=== PATIENT | female | born 1965 ===

== ENCOUNTER → 2017-07-22 | Outpatient (CLI) | payer OTHER ==
[~2017-07-22] MED LIST: DOCU100 PO; HEMOTOB PR; HYDACE25S PR; HYDACE5 PO; POLY17UD PO
[2017-07-25 01:40] LABS: HPV Genotype 16 Not Detected (NOTDET); HPV Genotype 18 Not Detected (NOTDET)
[2017-08-02 10:55] LABS: HPV High Risk Other Not Detected (NOTDET)
== END ==
LOC: LAB 14:23
PROVIDERS: Registered Nurse Community Health
DX: Z12.4 Encounter for screening for malignant neoplasm of cervix (principal)
CPT/HCPCS: 87624; G0123

== ENCOUNTER → 2020-12-04 | Outpatient (CLI) | payer OTHER ==
[2020-12-06 17:09] LABS: HPV 16 Negative (Negative); HPV 18 Negative (Negative); HPV OTHER HR TYPES Negative (Negative)
== END | disposition home or self-care (01) ==
LOC: LAB SHORT 13:45 → LAB 13:45
PROVIDERS: Physician Assistant
DX: Z01.419 Encounter for gynecological examination (general) (routine) without abnormal findings (principal)
CPT/HCPCS: 87624; G0123

== ENCOUNTER → 2021-03-26 | Outpatient (CLI) | payer OTHER ==
[~2021-03-26] MED LIST changes: +ATOR40TA PO; +IBUP600 PO; +LISINOPRIL2.5 MG PO; +METFORMIN HCL500 M3 PO; +TAMS.4ER PO
== END | disposition home or self-care (01) ==
LOC: LAB 19:06 → LAB SHORT 19:06
DX: R30.9 Painful micturition, unspecified (principal)
CPT/HCPCS: 87086

== ENCOUNTER → 2021-04-07 | Outpatient (CLI) | payer OTHER | LOC: LAB SHORT 18:53 → LAB 18:53 | DX: R30.9 Painful micturition, unspecified (principal) | CPT/HCPCS: 87086 ==